=== PATIENT | male | born 1985 | race Hispanic/Latino ===

== ENCOUNTER 2018-02-11 10:00 | Emergency (ER) | payer BC ==
--- NOTE | 2018-02-11 10:56 | RAD ---
RIGHT ANKLE THREE VIEWS: History: Injury, right ankle pain. FINDINGS/IMPRESSION: Soft tissue swelling is present. There is an oblique fracture involving the distal fibula with minima l displacement POS: [facility]
== END 2018-02-11 11:15 | disposition home or self-care (01) ==
LOC: MADERS 10:00
DX: S82.434A Nondisplaced oblique fracture of shaft of right fibula, initial encounter for closed fracture (principal); S82.831A Other fracture of upper and lower end of right fibula, initial encounter for closed fracture; F17.210 Nicotine dependence, cigarettes, uncomplicated; X50.1XXA Overexertion from prolonged static or awkward postures, initial encounter